=== PATIENT | male | born 1985 | race Caucasian/White ===

== ENCOUNTER 2019-11-07 08:37 | Outpatient (CLI) | payer BC, SELFPAY ==
--- NOTE | 2019-11-07 | EST_ITS ---
Patient Info Name: Chino Anderson Age: 34 years : 1985 Gender: Male Ht: 70 in Wt: 230 lbs BSA: 2.30 m2 Exam Date: 11/07/2019 9:01 AM Exam Location: [facility] Stress Patient Status: Outpatient Admit Date: 11/07/2019 Staff Ordering Physician: Carly, Yanelis Field MD Attending Provider: Carly, Yanelis Field MD Exercise Technologist: Tata Brar RDCS Exercise Physician: Eyad Hutson DO Exam Type: CA stress test treadmill Study Info Indications ICD E10.9 - TYPE 1 DIABETES MELLITUS WITHOUT COMPLICATIONS A treadmill exercise stress test was performed. Summary 1. 1. Negative Rylan exercise stress test for ischemic ST changes by ECG criteria. He achieved 189 bpm and 12 minutes and 46 seconds. 2. 2. Good functional capacity, achieving 13.3 METs of workload. 3. 3. Appropriate HR response to exercise. 4. 4. Appropriate HR recovery at 1 minute post exercise. 5. 5. No imaging with stress testing. 6. 6. Patient informed of the above results. Protocol: Rylan Stress ECG Details Stage: REST Duration (min): 10 min : 41 sec Speed (mph): 0.0 Grade (%): 0 HR (bpm): 81 SBP (mmHg): 132 DBP (mmHg): 83 METS: --- Stage: REST Duration (min): 13 min : 3 sec Speed (mph): 0.0 Grade (%): 0 HR (bpm): 76 SBP (mmHg): 132 DBP (mmHg): 83 METS: --- Stage: STAGE 1 Duration (min): 1 min : 0 sec Speed (mph): 1.7 Grade (%): 10 HR (bpm): 99 SBP (mmHg): 132 DBP (mmHg): 83 METS: --- Stage: STAGE 1 Duration (min): 2 min : 0 sec Speed (mph): 1.7 Grade (%): 10 HR (bpm): 106 SBP (mmHg): 132 DBP (mmHg): 83 METS: --- Stage: STAGE 1 Duration (min): 3 min : 0 sec Speed (mph): 1.7 Grade (%): 10 HR (bpm): 114 SBP (mmHg): 150 DBP (mmHg): 70 METS: --- Stage: STAGE 2 Duration (min): 1 min : 0 sec Speed (mph): 2.5 Grade (%): 12 HR (bpm): 119 SBP (mmHg): 150 DBP (mmHg): 70 METS: --- Stage: STAGE 2 Duration (min): 2 min : 0 sec Speed (mph): 2.5 Grade (%): 12 HR (bpm): 126 SBP (mmHg): 172 DBP (mmHg): 67 METS: --- Stage: STAGE 2 Duration (min): 3 min : 0 sec Speed (mph): 2.5 Grade (%): 12 HR (bpm): 130 SBP (mmHg): 172 DBP (mmHg): 67 METS: --- Stage: STAGE 3 Duration (min): 1 min : 0 sec Speed (mph): 3.4 Grade (%): 14 HR (bpm): 139 SBP (mmHg): 179 DBP (mmHg): 66 METS: --- Stage: STAGE 3 Duration (min): 2 min : 0 sec Speed (mph): 3.4 Grade (%): 14 HR (bpm): 145 SBP (mmHg): 179 DBP (mmHg): 66 METS: --- Stage: STAGE 3 Duration (min): 3 min : 0 sec Speed (mph): 3.4 Grade (%): 14 HR (bpm): 149 SBP (mmHg): 170 DBP (mmHg): 72 METS: --- Stage: STAGE 4 Duration (min): 1 min : 0 sec Speed (mph): 4.2 Grade (%): 16 HR (bpm): 164 SBP (mmHg): 170 DBP (mmHg): 72 METS: ---
== END 2019-11-07 08:38 | disposition home or self-care (01) ==
PROVIDERS: PCP Family Medicine; Visit Provider Family Medicine
DX: E10.9 Type 1 diabetes mellitus without complications (principal)
CPT/HCPCS: 93017

== ENCOUNTER 2019-12-16 14:51 | Inpatient (IN) | payer BC, SELFPAY ==
[2019-12-16] VITALS (12 sets, daily range): BP systolic 128–159; BP diastolic 71–93; PULSE 97–120; RESP 15–23; TEMP 36.1; O2SAT 97–100
--- NOTE | ~2019-12-16 | CT_ITS ---
EXAMINATION: CT abdomen pelvis w con DATE: 12/16/2019 17:32 INDICATION: Abdominal pain TECHNIQUE: Computed tomography (CT) of the abdomen and pelvis was performed with 100 cc Omnipaque 350 intravenous contrast. Automated exposure control and iterative reconstruction technique were employe d. Exam dose: 1056.66 mGy-cm total exam DLP. COMPARISON: None. FINDINGS: The lung bases are clear of infiltrate or consolidation. Normal heart size. No pericardial or pleural effusion. Diffuse hepatic steatosis. No hepatic, splenic, pancreatic, and adrenal or renal space-occupying mass lesion is evident. Normal caliber of the abdominal aorta. No intraperitoneal or retroperitoneal or p elvic mass lesion or adenopathy or ascites. The urinary bladder, prostate gland and seminal vesicles appear normal. Normal appendix. There are scattered occasional diverticula of the colon; no CT evidence of diverticulitis. No bowel o bstruction, bowel wall thickening, pneumatosis or intraperitoneal free air. Included skeletal structures are unremarkable. IMPRESSION: Minimal diverticulosis of the colon Diffuse hepatic steatosis Reviewed, dictated and finalized at [facility] Reviewed, dictated and finalized at [facility]. EXAMINER
--- NOTE | ~2019-12-16 | XR_ITS ---
EXAMINATION: XR chest 1V portable DATE: 12/16/2019 16:18 INDICATION: Shortness of breath, cough and fever TECHNIQUE: frontal view of the chest was obtained along with a repeat image with nipple markers. COMPARISON: None FINDINGS: 9 mm nodular opacity projecting over the anterior left fourth rib at the lateral left midlung zone wh ich does not colocalize with the nipples. No other airspace opacities, pulmonary edema, pleural effus ion or pneumothorax. The cardiomediastinal silhouette is normal. Are a couple small sclerotic likely bone islands project over the right glenoid and humeral head. Mild thoracic dextrocurvature. IMPRESSION: 1. Small nodular opacity projecting over the lateral left midlung zone which given patient age is mos t likely infectious/inflammatory in etiology. Could consider follow-up low-dose noncontrast chest CT for further evaluation. Reviewed, dictated and finalized at [facility] PRODUCTION IMPRESSION: 1. Small nodular opacity projecting over the lateral left midlung zone which gi rema patient age is most likely infectious/inflammatory in etiology. Could consi suha follow-up low-dose noncontrast chest CT for further evaluation.
--- NOTE | 2019-12-16 15:18 | ECG_ITS ---
Measurements Intervals [place] Rate: 104 P: 75 ME: 147 QRS: 90 QRSD: 93 T: 46 QT: 331 QTc: 436 Interpretive Statements SINUS TACHYCARDIA PEAKED T WAVES- CONSIDER HYPERKALEMIA OR ISCHEMIA ABNORMAL ECG Electronically Signed On 12-16-2019 17:34:09 NIGHTMAN by Eyad Hutson D.O.
[2019-12-16 15:35] LABS: Basophils Absolute Auto 0.1 K/mm3 (0.0-0.1); Basophils Percent Auto 0.6 % (0.2-1.2); Eosinophils Percent Auto 0.2 % (0-4.4); Hematocrit 50.4 % (42.0-52.0); Hemoglobin 17.2 g/dL (14.0-18.0); Immature Granulocyte Absolute 0.05 K/mm3 (0.00-0.031); Immature Granulocyte Percent A 0.4 % (0-0.5); Lymphocytes Percent Auto 10.6 % (18.3-44.2); Mean Corpuscular HGB Conc 34.1 g/dl (32-36); Mean Corpuscular Volume 96.7 fl (80-100); Mean Platelet Volume 9.1 fl (7.4-10.4); Monocytes Percent Auto 7.3 % (2.6-8.5); Neutrophils Absolute Auto 11.4 K/mm3 (1.3-6.7); Neutrophils Percent Auto 80.9 % (45.5-73.1); Platelet Count Result 378 k/mm3 (150-375); Red Blood Count 5.21 M/mm3 (4.6-6.20); Red Cell Distribution Width 11.3 % (11.5-14.5); White Blood Count 14.1 K/mm3 (4.5-10.0)
--- NOTE | 2019-12-16 16:28 | ED.GENADULT ---
HPI - General Adult General Chief complaint: Shortness of Breath/Dyspnea Stated complaint: vomiting, headache, body aches, fever Time Seen by Provider: 12/16/19 16:02 Source: RN notes reviewed History of Present Illness HPI narrative: Patient presents emergency department from home for multiple complaints. Patient states that she developed shortness of breath with a cough starting yesterday cough is productive of yellow sputum states is associated with feeling of chest heaviness. He also notes developing nausea and vomiting today states that is associated with abdominal pain throughout the abdomen described as cramping in nature. States that he is a type I diabetic. States he has been having a fever at home has been measuring up to 101 ?F. He denies having any diarrhea or any other symptoms at this time Related Data Allergies Allergy/AdvReac Type Severity Reaction Status Date / Time No Known Allergies Allergy Verified 12/16/19 17:05 Review of Systems Review of Systems: Narrative: Gen.: Denies fevers or chills Eyes: Denies eye pain or visual change ENT: Denies congestion Respiratory: Reports cough CV: Reports chest heaviness GI: See HPI denies burning, urgency, frequency or hematuria Musculoskeletal: Denies back pain or muscle pain Neuro: Denies numbness, tingling, weakness or focal weakness Skin: Denies rash Except as documented, all other systems reviewed and negative [facility] Past Medical History Medical History (Updated 12/16/19 @ 18:03 by Brian Zambrano DO) Diabetes mellitus Social History Social History (Updated 12/16/19 @ 16:32 by Brian Zambrano DO) Smoking status: Never smoker Gender identity (if verbalized by the patient): Male Exam Narrative: Exam Narrative: APPEARANCE: No acute distress, nontoxic, resting in bed EYES: EOMI HEENT: Normocephalic, atraumatic, OMM RESPIRATORY: No respiratory distress Clear to auscultation bilaterally with no rhonchi wheezing or rales. CARDIOVASCULAR: Regular rate and rhythm without murmurs rubs or gallops. ABDOMINAL: Soft, nondistended diffusely tender to palpation no rebound or guarding MUSCULOSKELETAl: Moves all extremities. No clubbing, cyanosis or edema. NEURO: Awake and alert. Following commands, speech normal, no focal deficits SKIN:: Warm, dry. No rashes lesions or abrasions PSYCHIATRIC: Normal affect/mood, Course Course Emergency Course: Discussed Dr. Flores presentation work-up agrees with admission the ICU request patient receive a total of 3 L normal saline agrees with insulin drip. Agrees with plans to not treat hyperkalemia at this time as it should improved with improvement of patient's acidotic status Discussed with PARI Slater for Dr. Honeycutt agrees with admission at this time Discussed with patient and family results of workup and diagnosis. Discussed need for admission. Patient and family understand and agree to current treatment plan Vital Signs Vital signs: Vital Signs Temperature 97.0 F L 12/16/19 15:07 Pulse Rate 101 H 12/16/19 15:07 Respiratory Rate 18 12/16/19 15:07 Blood Pressure 143/93 H 12/16/19 15:07 Pulse Oximetry 100 12/16/19 15:07 Temperature 97.0 F L 12/16/19 15:07 Pulse Rate 104 H 12/16/19 17:13 Respiratory Rate 20 12/16/19 17:13 Blood Pressure 150/75 H 12/16/19 17:13 Pulse Oximetry 97 12/16/19 17:13 Medical Decision Making Vital Signs Vital Signs: Vital Signs Temperature 97.0 F L 12/16/19 15:07 Pulse Rate 101 H 12/16/19 15:07 Respiratory Rate 18 12/16/19 15:07 Blood Pressure 143/93 H 12/16/19 15:07 Pulse Oximetry 100 12/16/19 15:07 Temperature 97.0 F L 12/16/19 15:07 Pulse Rate 104 H 12/16/19 17:13 Respiratory Rate 20 12/16/19 17:13 Blood Pressure 150/75 H 12/16/19 17:13 Pulse Oximetry 97 12/16/19 17:13 Lab Data Result diagrams: 12/16/19 15:20 12/16/19 15:20 Labs: Lab Results 12/16/19 12/16/19 12/16/19 Range/U
[2019-12-16 16:45] LABS: Alanine Aminotransferase 51 U/L (4-50); Albumin Level 5.2 g/dL (3.5-5.1); Alkaline Phosphatase 118 U/L (38-126); Anion Gap 32.00001 mmol/L (8-16); Aspartate Amino Transferase 40 U/L (17-59); Blood Urea Nitrogen 17 mg/dL (9-20); Calcium 10.2 mg/dL (8.4-10.2); Carbon Dioxide < 5 mmol/L (22-30); Chloride 95 mmol/L (98-107); Estimated CRCL calculation 107 ml/min; Estimated Glomerular Filt Rate > 60; Glucose 467 mg/dL (75-110); Lipase 84 U/L (23-300); Potassium 6.3 mmol/L (3.4-5.0); Sodium 132 mmol/L (137-145)
[2019-12-16 16:47] LABS: Troponin I < 0.012 ng/mL (0.000-0.034)
[2019-12-16] MEDS: SODIUM CHLORIDE 0.9% IV 1,000 ML 999 ML IV CONT ×3 (17:05→18:32)
[2019-12-16] MEDS: ONDANSETRON INJ 4 MG/2 ML VIAL IV PUSH ×2 (17:18→20:08)
[2019-12-16 17:25] LABS: Add Urine Microscopic? YES; Appearance Urine Clear (Clear); Bilirubin Urine Negative (Negative); Blood Urine 1+ (Negative); Color Urine Straw (Yellow); Glucose Urine UA 3+ mg/dL (Negative); Ketones Urine 2+ mg/dL (Negative); Leukocyte Esterase Ur Negative LEU/UL (Negative); Mucus Urine Rare /lpf; Nitrate Urine Negative (Negative); Protein Urine 2+ mg/dL (Negative); RBC Urine 0-2 /hpf (0-2); Specific Grav Ur 1.023 (1.001-1.035); Urobilinogen Urine Negative mg/dL (<2.0); WBC Urine 0-3 /hpf
[2019-12-16] MEDS: INSULIN HUMAN REGULAR (*BKC) 100 UNITS in SODIUM CHLORIDE 0.9% IV 99 ML 8.8 UNITS IV CONT (17:38)
[2019-12-16 17:47] LABS: Glucose Point of Care > 500 (65-105)
[2019-12-16 17:52] LABS: Alveolar/Arterial O2 Gradient 12.4 mmHg; Base Excess ABG -23.3 mEq/l (+/-2.0); Fractional Inspired Oxygen 21 %; HCO3 ABG 6.4 mEq/l (22.0-26.0); Oxygen Content ABG 21.6 %vol (16.0-22.0); Oxygen Saturation ABG 95.1 % (95.0-100.0); Oxyhemoglobin 94.9 % THb (90.0-100.0); PCO2 ABG 25.3 mmHg (35.0-45.0); Total Hemoglobin 16.1 g/dL (12.0-18.0)
[2019-12-16 17:53] LABS: pH ABG 7.019 (7.350-7.450)
[2019-12-16 17:54] LABS: Device ROOM AIR; Modified Allen's Test Pass; Site Drawn LEFT RADIAL
[2019-12-16 18:37] LABS: Glucose Point of Care 415 (65-105)
--- NOTE | 2019-12-16 18:47 | PC.NURSE ---
called Doc johnson, added on BMO and HGB A1C. BMP was double ordered? 1845
[2019-12-16 18:51] LABS: Magnesium 2.1 mg/dL (1.6-2.3); Phosphorus 5.1 mg/dL (2.5-4.5)
[2019-12-16 19:20] LABS: Hemoglobin A1C 6.3 % (<5.7)
--- NOTE | 2019-12-16 19:23 | PM.IMHP ---
H&P: HPI History of Present Illness Date/Time: 12/16/19 19:23 Chief complaint: vomiting, headache, body aches, fever Narrative: Chino Anderson is a 34 year old male who was diagnosed with diabetes type 1 in his early 30s. The patient is on insulin. He stated that he has been taking his insulin. However he started running a fever approximately 2 days ago. He stated that his dad was around a COVID positive person but his dad tested negative for COVID. Nobody else in the household has any symptoms. The patient has body aches fever and chills. He now has nausea vomiting and abdominal pain. He also has a history of hypertension. Patient's white count is up to 14.1. PH is 7.019 CO2 was 25.3 PO2 107. Potassium 6.3 his anion gap is 32. Carbon dioxide less than 5. Patient was 12 for COVID and placed on isolation. Minimal diverticulosis of the colon diffuse hepatic steatosis. Chest x-ray was read as small nodular opacity projecting over the left lateral mid lung zones. The patient is already aware of this and is being monitored. Patient is being admitted inpatient for DKA. Date of service is 12/16/2019 Review of Systems Review of Systems: All systems reviewed & are unremarkable except as noted in HPI and below Constitutional: Constitutional: Reports as per HPI and Reports no additional constitutional complaints Eyes: Eyes: Reports as per HPI and Reports no additional eye complaints ENT: Reports system reviewed and no additional complaints, except as documented and Reports Normal hearing present Cardiovascular: Cardiovascular: Reports no additional cardiovascular complaints Respiratory: Respiratory: Reports no additional respiratory complaints and Reports no additional respiratory complaints Gastrointestinal: Gastrointestinal: Reports as per HPI and Reports no additional gastrointestinal complaints Musculoskeletal: Musculoskeletal: Reports no additional musculoskeletal complaints Integumentary/Breasts: Skin/Breast: Reports system reviewed and no additional complaints, except as docu and Reports as per HPI Neurologic: Reports system reviewed and no additional complaints, except as documented, Reports as per HPI and Reports Normal hearing present Psychiatric: Psychiatric: Reports no additional psychiatric complaints and Reports as per HPI Endocrine: Endocrine: Reports no additional endocrine complaints Hematologic/Lymphatic: Hematologic/Lymphatic: Reports no additional hematologic/lymphatic complaints Allergic/Immunologic: Allergic/Immunologic: Reports no additional allergic/immunologic complaints [facility] Past Medical History Medical History (Updated 12/16/19 @ 19:27 by Nohemy Cronin NP) Diabetes mellitus Diverticulosis Hepatic steatosis Hypertension Lung nodule PTSD (post-traumatic stress disorder) Surgical History Surgical History H/O right wrist surgery ORIF right wrist History of carpal tunnel release Bilaterally Family History Family History Father Cancer Social History Social History (Updated 12/16/19 @ 19:29 by Nohemy Cronin NP) Social History: The patient is and has 3 children. He has been in the developed PTSD from the . Patient chews tobacco. He occasionally drinks. His is the durable power attorney recruiter for healthcare. The patient is a full code. Smoking status: Never smoker Tobacco type: smokeless tobacco Alcohol intake: current Substance use: never Living arrangements: with family Occupation/Education: occupation Gender identity (if verbalized by the patient): Male Meds Home Medications and Allergies Allergies Allergy/AdvReac Type Severity Reaction Status Date / Time No Known Allergies Allergy Verified 12/16/19 17:05 Vital Signs Vital Signs - 24 hr 12/16/19 15:07 12/16/19 15:52 12/16/19 17:13 Temperature 36.1 C
[2019-12-16] MEDS: SODIUM CHLORIDE 0.9% IV 1,000 ML 150 ML IV CONT (20:08)
[2019-12-16 20:19] LABS: Glucose Point of Care 310 (65-105)
[2019-12-16 20:30] LABS: Lactic Acid Reflex 1.9 mmol/L (0.7-2.1)
[2019-12-16 20:32] LABS: Anion Gap 23 mmol/L (8-16); Blood Urea Nitrogen 16 mg/dL (9-20); Calcium 8.4 mg/dL (8.4-10.2); Carbon Dioxide 7 mmol/L (22-30); Chloride 106 mmol/L (98-107); Estimated CRCL calculation 118 ml/min; Estimated Glomerular Filt Rate > 60; Glucose 264 mg/dL (75-110); Potassium 5.3 mmol/L (3.4-5.0); Sodium 136 mmol/L (137-145)
[2019-12-16 21:01] LABS: Glucose Point of Care 226 (65-105)
[2019-12-16] MEDS: SODIUM BICARBONATE 8.4% 150 MEQ in WATER, STERILE FOR INJECTION 950 ML 100 MEQ IV CONT (21:27)
[2019-12-16] MEDS: ENOXAPARIN 40 MG/0.4 ML SYRINGE SUB-Q (21:28)
[2019-12-16 21:31] LABS: Troponin I < 0.012 ng/mL (0.000-0.034)
[2019-12-16 22:55] LABS: Glucose Point of Care 177 (65-105)
[2019-12-17] VITALS (10 sets, daily range): BP systolic 111–147; BP diastolic 54–78; PULSE 76–101; RESP 13–20; TEMP 36.6–36.9; O2SAT 97–100; BMI 30.3
[2019-12-17] MEDS: ONDANSETRON INJ 4 MG/2 ML VIAL IV PUSH (00:24)
[2019-12-17 00:40] LABS: Anion Gap 17 mmol/L (8-16); Blood Urea Nitrogen 14 mg/dL (9-20); Calcium 8.9 mg/dL (8.4-10.2); Carbon Dioxide 14 mmol/L (22-30); Chloride 105 mmol/L (98-107); Estimated CRCL calculation 116 ml/min; Estimated Glomerular Filt Rate > 60; Glucose 130 mg/dL (75-110); Sodium 136 mmol/L (137-145)
[2019-12-17 00:46] LABS: Influenza Control Positive
[2019-12-17 00:50] LABS: Troponin I < 0.012 ng/mL (0.000-0.034)
[2019-12-17 01:05] LABS: Glucose Point of Care 109 (65-105)
[2019-12-17 01:05] LABS: Glucose Point of Care 136 (65-105)
--- NOTE | 2019-12-17 01:25 | PC.NURSE ---
This patient, Chino Anderson, was admitted to Intensive Care Unit-8 at 0000 on 12/17/2019. Patient/family oriented to hospital policies and general routines including ID bracelet, bed and alarms, visiting hours, pain management, procedures, bathroom and other care routines, personal items, smoking policy, room service/diet, and visiting hours. Information on how to activate the Rapid Response Team has been discussed. Patient/Family are encouraged to report perceived risks to care and to ask questions if they do not understand what they are told or what they should do.
[2019-12-17] MEDS: MORPHINE SULFATE (*CRX) 2 MG/ML INJ IV PUSH (01:57)
[2019-12-17] MEDS: KCL 20 MEQ/D5/0.45% SOD CHL 1,000 ML 150 ML IV CONT ×2 (01:58→09:21)
[2019-12-17 02:11] LABS: Alveolar/Arterial O2 Gradient 8.1 mmHg; Base Excess ABG -12.4 mEq/l (+/-2.0); Fractional Inspired Oxygen 21 %; HCO3 ABG 13.4 mEq/l (22.0-26.0); Oxygen Content ABG 20.6 %vol (16.0-22.0); Oxyhemoglobin 96.1 % THb (90.0-100.0); PCO2 ABG 31.3 mmHg (35.0-45.0); PO2 ABG 104.2 mmHg (80.0-100.0); PO2 FiO2 Ratio Arterial Blood 4.96 %; Total Hemoglobin 15.2 g/dL (12.0-18.0)
[2019-12-17 02:13] LABS: Device ROOM AIR; Modified Allen's Test Pass; Site Drawn RIGHT RADIAL
[2019-12-17 02:36] LABS: Glucose Point of Care 99 (65-105)
[2019-12-17 03:29] LABS: Glucose Point of Care 133 (65-105)
[2019-12-17 05:01] LABS: Glucose Point of Care 138 (65-105)
[2019-12-17 05:01] LABS: Glucose Point of Care 150 (65-105)
[2019-12-17 05:28] LABS: Anion Gap 13 mmol/L (8-16); Blood Urea Nitrogen 13 mg/dL (9-20); Calcium 8.4 mg/dL (8.4-10.2); Carbon Dioxide 18 mmol/L (22-30); Chloride 105 mmol/L (98-107); Estimated CRCL calculation 146 ml/min; Estimated Glomerular Filt Rate > 60; Glucose 144 mg/dL (75-110); Potassium 4.4 mmol/L (3.4-5.0); Sodium 136 mmol/L (137-145)
[2019-12-17 06:39] LABS: Glucose Point of Care 141 (65-105)
[2019-12-17 07:27] LABS: Glucose Point of Care 144 (65-105)
[2019-12-17 08:54] LABS: Potassium 4.3 mmol/L (3.4-5.0)
[2019-12-17 08:57] LABS: Anion Gap 7 mmol/L (8-16); Blood Urea Nitrogen 13 mg/dL (9-20); Calcium 8.5 mg/dL (8.4-10.2); Carbon Dioxide 24 mmol/L (22-30); Chloride 104 mmol/L (98-107); Estimated CRCL calculation 129 ml/min; Estimated Glomerular Filt Rate > 60; Glucose 152 mg/dL (75-110); Sodium 135 mmol/L (137-145)
[2019-12-17 08:58] LABS: Glucose Point of Care 166 (65-105)
[2019-12-17 09:23] LABS: Glucose Point of Care 124 (65-105)
[2019-12-17] MEDS: INSULIN GLARGINE (*BKC) 100 UNITS/ML 36 UNITS SUB-Q (09:44)
[2019-12-17] MEDS: ACETAMINOPHEN 500 MG TABLET 1000 MG PO ×2 (09:44→16:43)
--- NOTE | 2019-12-17 10:51 | PM.IMPN ---
Progress Note: A&P Assessment and Plan (1) DKA (diabetic ketoacidoses): Code(s): E11.10 - Type 2 diabetes mellitus with ketoacidosis without coma Status: Acute Assessment and Plan: Patient with abd pain, n/v and myalgias. He was found to have AG 32, glucose >500, BHO 10.7 and urine ketones consistent with DKA. Patient started on DKA protocol. AG closed. Symptoms mostly have resolved. Eating and toelrating it. Weaned off the insulin drip and changed back to his Lantus. DM educatior contacted (2) Diabetes mellitus: Code(s): E11.9 - Type 2 diabetes mellitus without complications Status: Acute Assessment and Plan: A1c 6.3. The patient's blood glucose was reviewed on 12/16 Glucose much better controlled. Continue AccuCheks covering with sliding scale. Hypoglycemia protocol available as needed. Lantus resumed (3) Acute hyperkalemia: Code(s): E87.5 - Hyperkalemia Status: Acute Assessment and Plan: Potassium at 6.3 with EKG changes noted. Treated appropriately and improved with improvement in the acidosis. Contnue to monitor. (4) Epigastric pain: Code(s): R10.13 - Epigastric pain Status: Acute Assessment and Plan: CT of the abdomen pelvis showing no acute findings explain epigastric pain. Consider gastritis or peptic ulcer disease. Also be musculoskeletal pain vomiting. The chest heaviness and SOB most likely related to the severe acidosis on admission. Troponins are negative. EKG showing peaked T waves from the hyperkalemia but no acute ischemic findings. Stress test 11/07/19 okay. These symptoms has resolved. Add PPI. Repeat Lipase. (5) Suspected COVID-19 virus infection: Code(s): Z20.828 - Contact with and (suspected) exposure to other viral communicable diseases Status: Acute Assessment and Plan: Subjective fevers but CXR clear. He has marley having GI symptoms. Influenza negative. Patient will be placed on isolation. Possible COVID exposure from coworker that is COVID positive. COVID test pending. (6) Hypertension: Code(s): I10 - Essential (primary) hypertension Status: Chronic Assessment and Plan: Patient's blood pressure was reviewed on 12/16 Blood pressure remains well controlled. Will continue to hold Lisinopril for now. (7) PTSD (post-traumatic stress disorder): Code(s): F43.10 - Post-traumatic stress disorder, unspecified Status: Chronic Assessment and Plan: Mood stable. Resume home medications. (8) Lung nodule: Code(s): R91.1 - Solitary pulmonary nodule Status: Chronic Assessment and Plan: CXR showing a small nodular opacity projecting over the lateral left midlung zone. The patient is aware of this already and his doctors have been monitoring him. (9) DVT prophylaxis: Code(s): Z29.9 - Encounter for prophylactic measures, unspecified Status: Acute Assessment and Plan: Lovenox Subjective Date/time seen: 12/17/19 10:51 Interval history: Date of service 12/16 34yo male with DM Type I here for DKA. Feels much better. Eating and tolerating it without nausea or vomiting. Still having the upper abd pain that is positional and palpable. Was SOB with chest heaviness on admission but this has resolved. Exam Narrative: Exam Narrative: AF 98.4 125/71 98 16 100% ra Gen - NARD Chest - CTA bilaterally, nml RR CV - RRR S1/S2; Tele showing no signifincat dysrhythmias Abd - Soft, minimal tenderness in the epigastric region Ext - No pedal edema, 2+ DP bilaterally Neuro - Alert and oriented. Nonfocal exam. Psych - Nml mood and affect Skin - Warm and dry; faint pink rash right mid abdomen. Objective Data Vital Signs Vital Signs: Vital Signs - 24 hr 12/16/19 15:07 12/16/19 15:52 12/16/19 17:13 Temperature 97.0 F L Pulse Rate 101 H 102 H 104 H Respiratory Rate 18 20 Blood Pressu
--- NOTE | 2019-12-17 11:46 | PC.NURSE ---
This patient, Chino Anderson, was received from ICU on 12/17/19 at 1146. Patient/family oriented to unit policies and routines
[2019-12-17] MEDS: INSULIN ASPART (*BKC) 100 UNITS/ML SUB-Q ×2 (11:57→18:04)
--- NOTE | 2019-12-17 12:01 | WPDCNINT ---
Assessment and Plan Assessment and plan (1) DKA (diabetic ketoacidoses): Code(s): E11.10 - Type 2 diabetes mellitus with ketoacidosis without coma Status: Acute Assessment and Plan: patient with diabetic ketoacidosis on admission, states he has been taking his medications. Been feeling ill with body aches, nausea, vomiting, shortness of breath with nonproductive cough and fevers. - Anion gap is closed, will transition patient to long-acting insulin and sliding scale insulin. He takes Lantus 36 units q.day which was given to him this morning - continue high-dose sliding scale - hemoglobin A1c was 6.3 this admission (2) Epigastric pain: Code(s): R10.13 - Epigastric pain Status: Acute Assessment and Plan: likely secondary nausea and vomiting. CT scan of the abdomen and pelvis showing no acute findings explaining his epigastric pain. Could be secondary to gastritis or peptic ulcer disease. - Patient also had negative troponins. - PPI was added - lipase has been repeated given history of alcohol use (3) Acute hyperkalemia: Code(s): E87.5 - Hyperkalemia Status: Acute Assessment and Plan: acute hyperkalemia likely related to acidosis - has resolved, will continue to monitor (4) Nausea & vomiting: Code(s): R11.2 - Nausea with vomiting, unspecified Status: Acute Assessment and Plan: likely due to DKA, has resolved (5) Suspected COVID-19 virus infection: Code(s): Z20.828 - Contact with and (suspected) exposure to other viral communicable diseases Status: Acute Assessment and Plan: patient with fevers, shortness of breath and cough which was nonproductive - patient was also having GI symptoms. - influenza negative - possible COVID-19 exposure from a co-worker who was positive COVID-19 - continue airborne, droplet, contact isolation/precautions - SARS-CoV-2 PCR obtained and pending (6) Hypertension: Code(s): I10 - Essential (primary) hypertension Status: Chronic Assessment and Plan: pressures have been stable, will hold lisinopril (7) Lung nodule: Code(s): R91.1 - Solitary pulmonary nodule Status: Chronic Assessment and Plan: patient is aware of the nodule on his lungs, and has been following with his doctors who have been monitoring (8) DVT prophylaxis: Code(s): Z29.9 - Encounter for prophylactic measures, unspecified Status: Acute Assessment and Plan: Lovenox Additional Plan discussed with patient updated with his condition and plan of care. He is aware that he will be transitioned to long-acting insulin and sliding scale insulin. He will be able to eat once insulin infusion is turned off code status: Full code critical care time spent: 43 minutes Due to a high probability of clinically significant, life threatening deterioration, the patient required my highest level of preparedness to intervene emergently and I personally spent this critical care time directly and personally managing the patient. This critical care time included obtaining a history; examining the patient; pulse oximetry; ordering and review of studies; arranging urgent treatment with development of a management plan; evaluation of patient's response to treatment; frequent reassessment; and discussions with other providers. It was exclusive of separately billable procedures and treating other patients and teaching time. Please see Assessment and Plan section and the rest of the note for further information on patient assessment and treatment [facility] Consult Note Consult date: 12/17/19 Time Seen: 07:06 Reason for consult: diabetic ketoacidosis, suspect COVID-19 HPI: Chino Anderson is a 34 year old male past medical history of diabetes type 1, hepatic steatosis, PTSD, essential hypertension, Lung nodule, diverticulosis presented to the ED on 12/16/2019 complains of nausea, vomiting, abdomina
[2019-12-17 12:02] LABS: Glucose Point of Care 308 (65-105)
[2019-12-17 14:13] LABS: SARS-CoV-2 RNA PCR Negative
[2019-12-17] MEDS: PANTOPRAZOLE SODIUM IV 40 MG VIAL IV PUSH (16:17)
[2019-12-17] MEDS: INSULIN ASPART (*BKC) 100 UNITS/ML 9 UNITS SUB-Q (18:04)
[2019-12-17 18:33] LABS: Glucose Point of Care 290 (65-105)
[2019-12-17] MEDS: ENOXAPARIN 40 MG/0.4 ML SYRINGE SUB-Q (20:27)
[2019-12-17] MEDS: INSULIN ASPART (*BKC) 100 UNITS/ML 6 UNITS SUB-Q (21:24)
[2019-12-18] MEDS: INSULIN ASPART (*BKC) 100 UNITS/ML SUB-Q ×2 (02:59→09:24)
[2019-12-18 05:30] LABS: Glucose Point of Care 235 (65-105)
[2019-12-18 05:30] LABS: Glucose Point of Care 379 (65-105)
[2019-12-18 05:30] LABS: Glucose Point of Care 225 (65-105)
[2019-12-18 06:00] VITALS: BP 137/86; PULSE 67; RESP 16; TEMP 36.3; O2SAT 100
[2019-12-18 06:19] LABS: Hematocrit 35.9 % (42.0-52.0); Hemoglobin 12.8 g/dL (14.0-18.0); Mean Corpuscular HGB Conc 35.7 g/dl (32-36); Mean Corpuscular Hemoglobin 32.2 pg (26-34); Mean Corpuscular Volume 90.4 fl (80-100); Mean Platelet Volume 8.7 fl (7.4-10.4); Platelet Count Result 264 k/mm3 (150-375); Red Blood Count 3.97 M/mm3 (4.6-6.20); Red Cell Distribution Width 11.1 % (11.5-14.5); White Blood Count 5.8 K/mm3 (4.5-10.0)
[2019-12-18 06:36] LABS: Alanine Aminotransferase 35 U/L (4-50); Albumin Level 3.9 g/dL (3.5-5.1); Alkaline Phosphatase 62 U/L (38-126); Anion Gap 5 mmol/L (8-16); Aspartate Amino Transferase 35 U/L (17-59); Bilirubin,Total 0.6 mg/dL (0.2-1.3); Blood Urea Nitrogen 7 mg/dL (9-20); Calcium 8.6 mg/dL (8.4-10.2); Carbon Dioxide 29 mmol/L (22-30); Chloride 101 mmol/L (98-107); Estimated CRCL calculation 146 ml/min; Estimated Glomerular Filt Rate > 60; Glucose 177 mg/dL (75-110); Lipase 678 U/L (23-300); Sodium 135 mmol/L (137-145)
[2019-12-18 07:17] LABS: Hepatitis B Surface Antigen Negative (Negative)
[2019-12-18 07:23] LABS: HAV RESULT Negative (Negative); Hepatitis B Core IgM Result Negative (Negative)
[2019-12-18 07:35] LABS: Hepatitis C Virus Antibody Negative (Negative)
[2019-12-18 07:57] LABS: Glucose Point of Care 421 (65-105)
[2019-12-18] MEDS: PANTOPRAZOLE 40 MG TABLET PO (08:19)
[2019-12-18 09:21] LABS: Glucose Point of Care 262 (65-105)
[2019-12-18] MEDS: INSULIN ASPART (*BKC) 100 UNITS/ML 9 UNITS SUB-Q (09:24)
--- NOTE | 2019-12-18 09:58 | PM.DS ---
DS: Admitting Diagnosis Admitting Diagnosis Admitting Diagnosis: DKA DS: Discharge Diagnosis Discharge Diagnosis (1) DKA (diabetic ketoacidoses): Code(s): E11.10 - Type 2 diabetes mellitus with ketoacidosis without coma Status: Acute Assessment and Plan: Patient with abd pain, n/v and myalgias. He was found to have Anion gap 32, glucose >500, BHO 10.7 and urine ketones consistent with DKA. Patient admitted to ICU and started on DKA protocol. AG closed. Symptoms have resolved. Eating and tolerating it. Weaned off the insulin drip and changed back to his Lantus. Glucose elevated at times since moving out of the ICU but patient states the carb content in the food is too low. Etiology of DKA unknown but suspected related to viral illness. (2) Diabetes mellitus: Code(s): E11.9 - Type 2 diabetes mellitus without complications Status: Acute Assessment and Plan: A1c 6.3. The patient's blood glucose was monitored closely. Glucose higher than he runs at home. He feels that the carb content in food is mislabeled. We continued AccuCheks covering with sliding scale. Hypoglycemia protocol available as needed. Recommend that he resume his home diet and insulin regiment with FSBS QAC/HS. If he forgets, recommend checking glucose 2hrs after his meal (3) Acute hyperkalemia: Code(s): E87.5 - Hyperkalemia Status: Acute Assessment and Plan: Potassium at 6.3 with EKG changes noted. Treated appropriately and improved with improvement in the acidosis. (4) Epigastric pain: Code(s): R10.13 - Epigastric pain Status: Acute Assessment and Plan: CT of the abdomen pelvis showing no acute findings to explain the epigastric pain. Consider gastritis or peptic ulcer disease. Also could be musculoskeletal pain from vomiting. The chest heaviness and SOB most likely related to the severe acidosis on admission. Troponins are negative. EKG showing peaked T waves from the hyperkalemia but no acute ischemic findings. Stress test 11/07/19 okay. These symptoms has resolved. We added PPI. Lipase normal on admission but up to 678 on repeat. No evidence of pancreatitis by CT scan. Food does not make the epigastric pain worse. The epigastric pain better today. Could have elevated lipase related to viral illness or from the severe acidosis. (5) Suspected COVID-19 virus infection: Code(s): Z20.828 - Contact with and (suspected) exposure to other viral communicable diseases Status: Acute Assessment and Plan: Subjective fevers at home but not here. CXR showing a small nodular opacity projecting over the lateral left midlung zone but otherwise clear. He has been having GI symptoms. Influenza negative. COVID negative. Still feels SOB but overall symptoms are improving. (6) Hypertension: Code(s): I10 - Essential (primary) hypertension Status: Chronic Assessment and Plan: Patient's blood pressure was monitored closely. Blood pressure remained well controlled. (7) PTSD (post-traumatic stress disorder): Code(s): F43.10 - Post-traumatic stress disorder, unspecified Status: Chronic Assessment and Plan: Mood stable. We resumed his home medications. (8) Lung nodule: Code(s): R91.1 - Solitary pulmonary nodule Status: Chronic Assessment and Plan: CXR showing a small nodular opacity projecting over the lateral left midlung zone. The patient is aware of this already and his doctors have been monitoring him. DS: Summary Hospital Course Reason for hospitalization: 34yo male with DM type I here for abd pain, n/v and myalgias and found to have DKA. Hospital Course: As above Status at Discharge Cognitive/behavioral status at discharge: PATIENT STABLE AT DISCHARGE Time Spent with Patient Time attestation: Total time spent providing and/or coordinating discharge services:32 minutes
--- NOTE | 2019-12-22 14:29 | PC.NURSE ---
Blood cx are negative. edi
== END 2019-12-18 11:00 | disposition home or self-care (01) | DRG 639 ==
LOC: ANHED 18:03 → ANHICU 12-17 02:31 → ANH3MEDSUR 12-18 10:24 → ANHICU 12-22 14:30
PROVIDERS: Emergency Medicine; Family Medicine; Internal Medicine; Student in an Organized Health Care Education/Training Program; Admitting Provider Internal Medicine; Emergency Provider Emergency Medicine; PCP Family Medicine; Visit Provider Nurse Practitioner
DX: E10.10 Type 1 diabetes mellitus with ketoacidosis without coma (principal); Z20.828 Contact with and (suspected) exposure to other viral communicable diseases; E87.5 Hyperkalemia; R10.13 Epigastric pain; R91.1 Solitary pulmonary nodule; I10 Essential (primary) hypertension; K57.90 Diverticulosis of intestine, part unspecified, without perforation or abscess without bleeding; K76.0 Fatty (change of) liver, not elsewhere classified; F17.220 Nicotine dependence, chewing tobacco, uncomplicated; F43.10 Post-traumatic stress disorder, unspecified; Y37.90XS Military operations, unspecified, sequela; Z23 Encounter for immunization; Z79.4 Long term (current) use of insulin
CPT/HCPCS: 36415; 36600; 71045; 74177; 80048; 80053; 80074; 81001; 82010; 82805; 82948; 83036; 83605; 83690; 83735; 84100; 84484; 85025; 85027; 87040; 87635; 87804; 90471; 90653; 93005; 96361; 96365; 96375; 99291; A9270; C9113; C9803; G0008; G0378; J0131; J1650; J1815; J2270; J2405; J3480; J7030; Q9967; U0003

== ENCOUNTER 2020-10-30 16:38 | Emergency (ER) | payer BC, SELFPAY ==
[2020-10-30 16:47] VITALS: BP 136/85; PULSE 116; RESP 18; TEMP 36.6; O2SAT 100
[2020-10-30 16:49] VITALS: BP 136/85; PULSE 116; RESP 18; TEMP 36.6; O2SAT 100
--- NOTE | 2020-10-30 17:05 | ED.SKABFB ---
HPI - Skin/Abscess/Foreign Bdy General Chief complaint: Extremity Injury, Lower Stated complaint: Rt leg swelling,Fever,Headaches,Chills Source: patient and RN notes reviewed Limitations: no limitations History of Present Illness HPI narrative: The patient, who is on several medications for diabetes, presents with skin eruption. 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 He now has 1/2-week history of pink, inflamed eruption below his right hip/trochanter/beltline. Symptoms are mild, associated with chills; no fever, abscess/induration, streaking, fluctuance. Symptoms are mild persistent despite antihistamines; he had prior prior leg lymph node dissection on the same side years ago. Related Data Home Medications Medication Instructions Recorded Confirmed Lantus Solostar U-100 Insulin 36 unit SUBCUT HS 12/17/19 10/30/20 azelastine-fluticasone 1 spray INTRANASAL BID 12/17/19 10/30/20 dextroamphetamine-amphetamine 30 mg PO QAM 12/17/19 10/30/20 [Adderall XR] insulin aspart U-100 [Novolog See Protocol SUBCUT TIDWMEAL 12/17/19 10/30/20 Flexpen U-100 Insulin] lisinopril 40 mg PO HS 12/17/19 10/30/20 insulin syringe-needle U-100 [BD 10/30/20 10/30/20 Insulin Syringe Ultra-Fine] pravastatin 20 mg PO DAILY 10/30/20 10/30/20 Allergies Allergy/AdvReac Type Severity Reaction Status Date / Time No Known Allergies Allergy Verified 10/30/20 16:49 Review of Systems Review of Systems: General/Constitutional: No weight loss,fever Eyes: N0: Redness,discharge Ears/Nose/Throat: No: Epistaxis,ear discharge Respiratory: Denies: Hemoptysis Gastrointestinal: No Vomiting, Bleeding-rectal Skin: No Lumps, eruption Neurologic: No Focal Weakness,Sz Hematologic: Denies: Petechiae/Purpura Psychiatric: No: Suicida ideationl All Other Systems: Reviewed and Negative [facility] Past Medical History Medical History (Updated 10/30/20 @ 17:09 by Wayne Romo MD) Diabetes mellitus Diverticulosis Hepatic steatosis Hypertension Lung nodule PTSD (post-traumatic stress disorder) Surgical History Surgical History (Updated 12/16/19 @ 19:33 by Nohemy Cronin NP) H/O right wrist surgery ORIF right wrist History of carpal tunnel release Bilaterally Family History Family History (Updated 12/17/19 @ 00:22 by Angela Casarez RN) Father Cancer Sibling Diabetes 1.5, managed as type 1 Sibling Diabetes 1.5, managed as type 1 Social History Social History (Updated 12/16/19 @ 19:29 by Nohemy Cronin NP) Social History: The patient is and has 3 children. He has been in the developed PTSD from the . Patient chews tobacco. He occasionally drinks. His is the durable power business attorney for healthcare. The patient is a full code. Smoking status: Light tobacco smoker Tobacco type: cigarettes Alcohol intake: unknown Substance use: unknown Gender identity (if verbalized by the patient): Male Spiritual care concerns: No Comments At time of signature, agree with nursing past medical, surgical, social and family history. There is no relevant family history pertinent to the presenting complaint Exam Narrative: General Appearance: Well nourished, Normocephalic Skin: Half-dollar sized small, isolated macular papular skin eruption of ant, right trochanter Nose: Normal nose, Nare clear Mouth/Throat: Normal appearing, Supple Respiratory: Airway patent, No respiratory distress Musculoskeletal: Moves all extremities, Non tender Neurological: A&O x3, Normal affect Course Vital Signs Vital signs: Vital Signs Temperature 97.8 F 10/30/20 16:47 Pulse Rate 116 H 10/30/20 16:47 Respiratory Rate 18 10/30/20 16:47 Blood Pressure 136/85 10/30/20 16:47 Pulse Oximetry 100 10/30/20 16:47 Temperature 97.8 F 10/30/20 16:49 Pulse Rate 116 H 10/30/20 16:49 Respiratory Rate 18 10/30/20 16:49 Blood Pressure 136/85 10/30/20 16
== END 2020-10-30 17:15 | disposition home or self-care (01) ==
PROVIDERS: Emergency Provider Emergency Medicine; PCP Family Medicine
DX: L03.115 Cellulitis of right lower limb (principal); E11.9 Type 2 diabetes mellitus without complications; I10 Essential (primary) hypertension; F17.200 Nicotine dependence, unspecified, uncomplicated; Z79.4 Long term (current) use of insulin
CPT/HCPCS: 99213; G0463

== ENCOUNTER 2021-05-20 10:49 | Emergency (ER) | payer BC, SELFPAY ==
[2021-05-20 10:57] VITALS: BP 131/87; PULSE 93; RESP 16; TEMP 36.3; O2SAT 100
--- NOTE | 2021-05-20 10:58 | ED.URI ---
HPI - URI/Sore Throat General Chief Complaint: Upper Respiratory Infection Stated Complaint: SOB/FEVER/CHILLS/CONGESTION/COUGH/RUNNY NOSE Time Seen by Provider: 05/20/21 10:58 Source: patient Mode of arrival: ambulatory Limitations: no limitations History of Present Illness HPI Narrative: 35-year-old male presents with complaint of headaches, fatigue, fever, nasal congestion, cough, body aches for 2 days. Reports that his temperature was 101.6 Fahrenheit. States that he is taking ibuprofen, Tylenol to treat symptoms. Reports that he has had generalized weakness with fatigue and shortness of breath when ambulatory. He is in no respiratory distress. Reports that cough initially was dry and is now coughing up a clear sputum. All systems reviewed and negative except as noted above. Related Data Home Medications Medication Instructions Recorded Confirmed Lantus Solostar U-100 Insulin 36 unit SUBCUT HS 12/17/19 10/30/20 azelastine-fluticasone 1 spray INTRANASAL BID 12/17/19 10/30/20 dextroamphetamine-amphetamine 30 mg PO QAM 12/17/19 10/30/20 [Adderall XR] insulin aspart U-100 [Novolog See Protocol SUBCUT TIDWMEAL 12/17/19 10/30/20 Flexpen U-100 Insulin] lisinopril 40 mg PO HS 12/17/19 10/30/20 insulin syringe-needle U-100 [BD 10/30/20 10/30/20 Insulin Syringe Ultra-Fine] pravastatin 20 mg PO DAILY 10/30/20 10/30/20 Allergies Allergy/AdvReac Type Severity Reaction Status Date / Time No Known Allergies Allergy Verified 10/30/20 16:49 Review of Systems Review of Systems: CONSTITUTIONAL: Reports fever, chills, or sweats. EYES: Denies visual changes, redness, or discharge. ENT: Reports rhinorrhea, congestion. Denies sore throat, or otalgia. CARDIOVASCULAR: Denies chest pain, palpitations, or edema. RESPIRATORY: Reports cough. Denies dyspnea. GASTROINTESTINAL: Denies abdominal pain, nausea, vomiting, or diarrhea. GENITOURINARY: Denies dysuria or hematuria. SKIN: Denies rash or itching. MUSCULOSKELETAL: Denies back pain, joint pain, or myalgia. NEUROLOGIC: Denies headache, numbness, or weakness. PSYCHIATRIC: Denies anxiety or depression. All other systems reviewed are negative, except as documented in HPI. [facility] Past Medical History Medical History (Updated 05/20/21 @ 11:27 by Jaon Tapia NP) Diabetes mellitus Diverticulosis Hepatic steatosis Hypertension Lung nodule PTSD (post-traumatic stress disorder) Surgical History Surgical History (Updated 12/16/19 @ 19:33 by Nohemy Cronin NP) H/O right wrist surgery ORIF right wrist History of carpal tunnel release Bilaterally Family History Family History (Updated 12/17/19 @ 00:22 by Angela Casarez RN) Father Cancer Sibling Diabetes 1.5, managed as type 1 Sibling Diabetes 1.5, managed as type 1 Social History Social History (Updated 12/16/19 @ 19:29 by Nohemy Cronin NP) Social History: The patient is and has 3 children. He has been in the developed PTSD from the . Patient chews tobacco. He occasionally drinks. His is the durable power staff attorney for healthcare. The patient is a full code. Smoking status: Light tobacco smoker Tobacco type: cigarettes Alcohol intake: unknown Substance use: unknown Gender identity (if verbalized by the patient): Male Spiritual care concerns: No Comments At time of signature, agree with nursing past medical, surgical, social and family history. There is no relevant family history pertinent to the presenting complaint. Exam Narrative: GENERAL: This is a well-nourished, well-developed patient, in no apparent distress. HEAD: normocephalic, atraumatic. EYES: PERRL. Sclera clear/white. Vision is grossly intact. EARS: External ears normal, auditory canals clear and without drainage, TMs normal without perforation. Hearing grossly intact. NOSE: External nose normal with clear nasal drainage, erythema to nares. THROAT: Mucous membranes moist, mild er
== END 2021-05-20 11:30 | disposition home or self-care (01) ==
PROVIDERS: Emergency Provider Nurse Practitioner Family; PCP Family Medicine
DX: J06.9 Acute upper respiratory infection, unspecified (principal); Z20.822 Contact with and (suspected) exposure to COVID-19; F17.210 Nicotine dependence, cigarettes, uncomplicated; E11.9 Type 2 diabetes mellitus without complications; I10 Essential (primary) hypertension; K76.0 Fatty (change of) liver, not elsewhere classified
CPT/HCPCS: 87426; 87804; 99213; C9803; G0463

== ENCOUNTER 2022-04-30 10:55 | Emergency (ER) | payer BC, SELFPAY ==
--- NOTE | ~2022-04-30 | XR_ITS ---
EXAMINATION: XR foot RT min 3V DATE: 04/30/2022 11:23 INDICATION: Right foot pain TECHNIQUE: Dorsoplantar, lateral, and 2 oblique views of the right foot were obtained. COMPARISON: None. FINDINGS: Bone alignment is normal. No fracture is identified. There is mild osteoarthritis of the mi dfoot. IMPRESSION: 1. No acute osseous abnormality. Reviewed, dictated and finalized at location A.
[2022-04-30 11:14] VITALS: BP 158/93; PULSE 85; RESP 16; TEMP 36.4; O2SAT 100
[2022-04-30 11:15] VITALS: BP 158/93; PULSE 85; RESP 16; TEMP 36.4; O2SAT 100
--- NOTE | 2022-04-30 11:23 | ED.LOWEXIN ---
HPI - Extremity Injury (Lower) General Chief Complaint: Extremity Injury, Lower Stated Complaint: R FOOT INJURY Source: patient and RN notes reviewed History of Present Illness HPI Narrative: [age] male presents to urgent care with complaints of right dorsal foot pain and swelling. Patient reports some bruising over the dorsal foot where he accidentally dropped a couch on his foot last night. Patient denies any numbness, tingling, or any other symptoms. Some parts of this dictation were generated by voice recognition software and may contain typographical and/or grammatical inaccuracies. Related Data Home Medications Medication Instructions Recorded Confirmed azelastine-fluticasone 137 mcg-50 1 spray intranasal BID 12/17/19 04/30/22 mcg/spray nasal spray dextroamphetamine-amphetamine ER 30 mg PO QAM 12/17/19 04/30/22 30 mg 24hr capsule,extend release (Adderall XR) insulin aspart U-100 100 unit/mL See Protocol subcut TIDWMEAL 12/17/19 04/30/22 (3 mL) subcutaneous pen (Novolog FlexPen U-100 Insulin aspart) insulin glargine 100 unit/mL (3 36 unit subcut HS 12/17/19 04/30/22 mL) subcutaneous pen (Lantus Solostar U-100 Insulin) lisinopril 40 mg tablet 40 mg PO HS 12/17/19 04/30/22 insulin syringe-needle U-100 0.5 10/30/20 04/30/22 mL 31 gauge x 5/16 (BD Insulin Syringe Ultra-Fine) pravastatin 20 mg tablet 20 mg PO DAILY 10/30/20 04/30/22 Allergies Allergy/AdvReac Type Severity Reaction Status Date / Time No Known Allergies Allergy Verified 04/30/22 11:14 Review of Systems Review of Systems: CONSTITUTIONAL: Denies fever, chills, or sweats. EYES: Denies visual changes, redness, or discharge. ENT: Denies otalgia and sore throat CARDIOVASCULAR: Denies chest pain, palpitations, or edema. RESPIRATORY: Denies cough or dyspnea. GASTROINTESTINAL: Denies abdominal pain, nausea, vomiting, or diarrhea. GENITOURINARY: Denies dysuria or hematuria. SKIN: Denies rash or itching. MUSCULOSKELETAL: Right foot pain NEUROLOGIC: Denies headache, numbness, or weakness. Pertinent positives per HPI. [facility] Past Medical History Medical History (Updated 04/30/22 @ 11:40 by Belem Thomas APRN) Diabetes mellitus Diverticulosis Hepatic steatosis Hypertension Lung nodule PTSD (post-traumatic stress disorder) Surgical History Surgical History (Updated 12/16/19 @ 19:33 by Nohemy Cronin NP) H/O right wrist surgery ORIF right wrist History of carpal tunnel release Bilaterally Family History Family History (Updated 12/17/19 @ 00:22 by Angela Casarez RN) Father Cancer Sibling Diabetes 1.5, managed as type 1 Sibling Diabetes 1.5, managed as type 1 Social History Social History (Updated 12/16/19 @ 19:29 by Nohemy Cronin NP) Social History: The patient is and has 3 children. He has been in the developed PTSD from the . Patient chews tobacco. He occasionally drinks. His is the durable power roll tube setter for healthcare. The patient is a full code. Smoking status: Light tobacco smoker Tobacco type: cigarettes Alcohol intake: unknown Substance use: unknown Living arrangements: with family Occupation/Education: occupation Gender identity (if verbalized by the patient): Male Spiritual care concerns: No Comments At the time of my signature, I reviewed and agree with the nursing past medical, surgical, social, and family history. There is no relevant family history pertinent to the patient complaint. Exam Narrative: GENERAL: This is a well-nourished, well-developed patient, in no apparent distress. HEAD: normocephalic, atraumatic. EYES: Sclera clear/white. Vision is grossly intact. EARS: External ears normal, auditory canals clear and without drainage, TMs normal without perforation. Hearing grossly intact. NOSE: External nose normal with no obvious nasal discharge, nares without redness, no rhinorrhea. THROAT: Muc
== END 2022-04-30 11:45 | disposition home or self-care (01) ==
PROVIDERS: Emergency Provider Nurse Practitioner Family; PCP Family Medicine
DX: S90.31XA Contusion of right foot, initial encounter (principal); E11.9 Type 2 diabetes mellitus without complications; I10 Essential (primary) hypertension; F17.210 Nicotine dependence, cigarettes, uncomplicated; Z79.4 Long term (current) use of insulin; W20.8XXA Other cause of strike by thrown, projected or falling object, initial encounter
CPT/HCPCS: 73630; 99213; G0463

== ENCOUNTER 2023-09-25 17:16 | Emergency (ER) | payer BC, SELFPAY ==
--- NOTE | ~2023-09-25 | XR_ITS ---
EXAMINATION: XR elbow LT min 3V DATE: 09/25/2023 17:44 INDICATION: Left elbow pain and swelling TECHNIQUE: Anteroposterior, two oblique and lateral views of the left elbow were obtained. COMPARISON: None. FINDINGS: Alignment is normal. No fracture or joint effusion. Mild osteoarthritis at the proximal radioulnar an d ulnotrochlear articulations of the elbow joint. Mild soft tissue swelling posterior to the left elb ow and proximal forearm. IMPRESSION: 1. Mild osteoarthritis at the left elbow. No joint effusion or acute osseous abnormality. Reviewed, dictated and finalized at location A. IMPRESSION: 1. Mild osteoarthritis at the left elbow. No joint effusion or acute osseous ab normality.
--- NOTE | 2023-09-25 17:18 | ED.UPPEXIN ---
HPI - Extremity Injury (Upper) General Chief Complaint: Extremity Problem,Nontraumatic Stated Complaint: L ELBOW PAIN/L HAND SWELLING Source: patient and RN notes reviewed Mode of arrival: ambulatory Limitations: no limitations History of Present Illness HPI narrative: Patient is a 38-year-old male who presents to the [facility] with complaints of left elbow pain. He states that he has pain to both the medial and lateral aspect at the elbow. He denies recent injury. Reports history of radial head fracture back in 2019. States that he will occasionally have pain to the elbow and swelling since that injury. Patient states that he noticed that the swelling is now in the elbow and radiates down into the left hand. He denies any hand pain or injury at this time. He is neurovascularly intact distally. Sensation is intact. Related Data Home Medications Medication Instructions Recorded Confirmed insulin aspart U-100 100 unit/mL See Protocol subcut TIDWMEAL 12/17/19 04/30/22 (3 mL) subcutaneous pen (Novolog FlexPen U-100 Insulin aspart) insulin glargine 100 unit/mL (3 36 unit subcut HS 12/17/19 04/30/22 mL) subcutaneous pen (Lantus Solostar U-100 Insulin) lisinopril 40 mg tablet 40 mg PO HS 12/17/19 04/30/22 insulin syringe-needle U-100 0.5 10/30/20 04/30/22 mL 31 gauge x 5/16 (BD Insulin Syringe Ultra-Fine) Allergies Allergy/AdvReac Type Severity Reaction Status Date / Time No Known Allergies Allergy Verified 09/25/23 17:32 Review of Systems Review of Systems: CONSTITUTIONAL: Denies fever, chills, or sweats. EYES: Denies visual changes, redness, or discharge. ENT: Denies otalgia and sore throat CARDIOVASCULAR: Denies chest pain, palpitations, or edema. RESPIRATORY: Denies cough or dyspnea. GASTROINTESTINAL: Denies abdominal pain, nausea, vomiting, or diarrhea. GENITOURINARY: Denies dysuria or hematuria. SKIN: Denies rash or itching. MUSCULOSKELETAL: Reports left elbow pain and swelling. NEUROLOGIC: Denies headache, numbness, or weakness. Pertinent positives per HPI. [facility] Past Medical History Medical History Diabetes mellitus Diverticulosis Hepatic steatosis Hypertension Lung nodule PTSD (post-traumatic stress disorder) Surgical History Surgical History H/O right wrist surgery ORIF right wrist History of carpal tunnel release Bilaterally Family History Family History Father Cancer Sibling Diabetes 1.5, managed as type 1 Sibling Diabetes 1.5, managed as type 1 Social History Social History Social History: The patient is and has 3 children. He has been in the developed PTSD from the . Patient chews tobacco. He occasionally drinks. His is the durable power trademark attorney for healthcare. The patient is a full code. Smoking status: Light tobacco smoker Tobacco type: cigarettes Alcohol intake: unknown Substance use: unknown Living arrangements: with family Occupation/Education: occupation Gender identity (if verbalized by the patient): Male Spiritual care concerns: No Comments At the time of my signature, I reviewed and agree with the nursing past medical, surgical, social, and family history. There is no relevant family history pertinent to the patient complaint. Exam Narrative: GENERAL: This is a well-nourished, well-developed patient, in no apparent distress. HEAD: normocephalic, atraumatic. EYES: Sclera clear/white. Vision is grossly intact. EARS: External ears normal. Hearing grossly intact. NOSE: External nose normal with no obvious nasal discharge, nares without redness, no rhinorrhea. THROAT: Mucous membranes moist, posterior pharynx clear. NECK: Neck supple, non-tender without lymphade
[2023-09-25 17:26] VITALS: BP 149/103; PULSE 110; RESP 16; TEMP 36.8; O2SAT 100
== END 2023-09-25 18:20 | disposition short-term general hospital (02) ==
PROVIDERS: Emergency Provider Nurse Practitioner
DX: M25.522 Pain in left elbow (principal); F17.210 Nicotine dependence, cigarettes, uncomplicated; E11.9 Type 2 diabetes mellitus without complications; Z79.4 Long term (current) use of insulin; I10 Essential (primary) hypertension
CPT/HCPCS: 73080; 99213; G0463

== ENCOUNTER 2023-10-25 08:15 | Emergency (ER) | payer BC, SELFPAY ==
--- NOTE | 2023-10-25 08:32 | ED.URI ---
HPI - URI/Sore Throat General Chief Complaint: Upper Respiratory Infection Stated Complaint: Sinus Infection Symptoms Source: patient and RN notes reviewed Mode of arrival: ambulatory Limitations: no limitations History of Present Illness HPI Narrative: 38 y/o male with hx DM1 presented for c/o nasal congestion, sinus pressure and cough for about 6 days. He denies shortness of breath, wheezing, nausea, vomiting, diarrhea or lethargy. Denies sick contacts. Endorses history of sinus surgery and takes antihistamines and nasal sprays daily. Has also added Mucinex and Neti pot to routine since symptom onset. MD elicited complaint: cough Related Data Home Medications Medication Instructions Recorded Confirmed insulin aspart U-100 100 unit/mL See Protocol subcut TIDWMEAL 12/17/19 10/25/23 (3 mL) subcutaneous pen (Novolog FlexPen U-100 Insulin aspart) lisinopril 40 mg tablet 40 mg PO HS 12/17/19 10/25/23 insulin syringe-needle U-100 0.5 10/30/20 10/25/23 mL 31 gauge x 5/16 (BD Insulin Syringe Ultra-Fine) pravastatin 20 mg tablet 20 mg PO DAILY 10/25/23 10/25/23 Allergies Allergy/AdvReac Type Severity Reaction Status Date / Time No Known Allergies Allergy Verified 10/25/23 08:32 Review of Systems Review of Systems: CONSTITUTIONAL: Endorses malaise, chills, sweats, fever EYES: Denies visual changes, redness, or discharge ENT: Reports rhinorrhea, congestion, sinus pain, denies otalgia, sore throat CARDIOVASCULAR: Denies chest pain, palpitations, edema RESPIRATORY: Reports cough, post nasal drainage. Denies dyspnea GASTROINTESTINAL: Denies abdominal pain, nausea, vomiting, diarrhea SKIN: Denies rash or itching MUSCULOSKELETAL: Denies myalgia NEUROLOGIC: Reports headache PMFSH Past Medical History Medical History Diabetes mellitus Diverticulosis Hepatic steatosis Hypertension Lung nodule PTSD (post-traumatic stress disorder) Surgical History Surgical History H/O right wrist surgery ORIF right wrist History of carpal tunnel release Bilaterally Family History Family History Father Cancer Sibling Diabetes 1.5, managed as type 1 Sibling Diabetes 1.5, managed as type 1 Social History Social History Social History: The patient is and has 3 children. He has been in the developed PTSD from the . Patient chews tobacco. He occasionally drinks. His is the durable power hobber for healthcare. The patient is a full code. Smoking status: Light tobacco smoker Tobacco type: cigarettes Alcohol intake: unknown Substance use: unknown Living arrangements: with family Occupation/Education: occupation Gender identity (if verbalized by the patient): Male Spiritual care concerns: No Exam Narrative: GENERAL: mildly Ill-appearing, nontoxic no acute distress. EYES: PERRLA, conjunctivae clear ENT: Mucous membranes moist. TMs pearly quinones with dull light reflex bilaterally; no tragal tenderness. Oropharynx not erythematous without lesions or exudate, no drooling, no hoarseness, no trismus, uvula midline. No tripod positioning, muffled voice, soft palate or pharyngeal wall bulging NECK: Supple. No lymphadenopathy CHEST: Clear to auscultation, breath sounds equal. No wheezing, rhonchi, rales, or stridor. No respiratory distress, speaks in full sentences. HEART: Regular rate and rhythm. No murmur heard. SKIN: Warm, dry, no rash. NEURO: Alert and oriented x3. PSYCH: Normal mood and affect Course Course Emergency Course: Patient is aware of diagnosis, understands and agrees to treatment plan. Anticipatory guidance given. Patient agrees to follow-up as directed and is aware of reasons to seek care at the emergency department. Po
[2023-10-25 08:37] VITALS: BP 133/85; PULSE 87; RESP 16; TEMP 36.1; O2SAT 98
[2023-10-25 09:12] LABS: EDSTREPNEGPOS1 Negative (Negative)
== END 2023-10-25 09:18 | disposition home or self-care (01) ==
PROVIDERS: Emergency Provider Nurse Practitioner Family
DX: J06.9 Acute upper respiratory infection, unspecified (principal); E11.9 Type 2 diabetes mellitus without complications; Z79.4 Long term (current) use of insulin; K76.0 Fatty (change of) liver, not elsewhere classified; I10 Essential (primary) hypertension; F43.10 Post-traumatic stress disorder, unspecified; F17.220 Nicotine dependence, chewing tobacco, uncomplicated; F17.210 Nicotine dependence, cigarettes, uncomplicated
CPT/HCPCS: 87880; 99213; G0463

== ENCOUNTER 2024-10-06 16:02 | Emergency (ER) | payer BC, SELFPAY ==
--- NOTE | ~2024-10-06 | XR_ITS ---
EXAMINATION: XR foot RT min 3V DATE: 10/06/2024 16:20 INDICATION: Right great toe injury and pain TECHNIQUE: Dorsoplantar, two oblique and lateral views of the right foot were obtained. COMPARISON: 04/30/2022 FINDINGS: Alignment is normal. No fracture. Minimal to mild osteoarthritis at the talonavicular, first metatarsophalangeal and a few tarsometatarsal and interphalangeal joints. IMPRESSION: 1. 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 No acute osseous adenopathy. Reviewed, dictated and finalized at location A. IMPRESSION: 1. 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 No acute o sseous adenopathy.
[2024-10-06 16:11] VITALS: BP 153/95; PULSE 109; RESP 16; TEMP 36.4; O2SAT 100
--- NOTE | 2024-10-06 16:25 | ED_ITS ---
HPI - Extremity Injury (Lower) General Chief Complaint: Extremity Injury, Lower Stated Complaint: INJURED R TOES Time Seen by Provider: 10/06/24 16:24 Source: patient and RN notes reviewed Mode of arrival: ambulatory Limitations: no limitations History of Present Illness HPI Narrative: 39-year-old male presents with concern for injury to the right foot. He reports yesterday he dropped a propane tank on his right foot yesterday. He reports pain to the 1st 2nd 3rd digits. The toenail of the 1st digit is discolored. Reports he has used ice and elevation. Patient is diabetic. MD complaint: foot injury Related Data Home Medications ?Medication ?Instructions ?Recorded ?Confirmed ?Last Taken ?Type insulin aspart U-100 100 unit/mL See Protocol subcut T IDWMEAL 12/17/19 10/06/24 Unknown History (3 mL) subcutaneous pen (Novolog FlexPen U-100 Insulin aspart) lisinopril 40 mg tablet 40 mg PO HS 12/17/19 5 Unknown History insulin syringe-needle U-100 0.5 10/30/20 10/25/23 Un known History mL 31 gauge x 5/16 (BD Insulin Syringe Ultra-Fine) pravastatin 20 mg tablet 20 mg PO DAILY 10/25/2303/01 Unknown History clonazepam 0.5 mg tablet mg 10/06/24 Unknown History dextroamphetamine-amphetamine ER PO 10/06/24 Unknown History 30 mg 24hr capsule,extend release glucagon HCl 1 mg solution for mg 10/06/24 Unknown Hi story injection (Glucagon (HCl) Emergency Kit) insulin aspart U-100 100 unit/mL 10/06/24 Unknown Hi story subcutaneous solution (Novolog U-100 Insulin aspart) Allergies Allergy/AdvReac Type Severity Reaction Status Date / Time No Known Allergies Allergy Verified 10/25/23 08:32 Review of Systems Review of Systems: CONSTITUTIONAL: Denies malaise, chills, sweats, or fever. SKIN: Denies rash or itching, open skin, laceration, abrasion, redness, warmth MUSCULOSKELETAL: Reports pain to the 1st 2nd 3rd digit of the right foot NEUROLOGIC: Denies numbness, weakness All systems reviewed & are unremarkable except as noted in HPI and below PMFSH Past Medical History Medical History Diabetes mellitus Diverticulosis Hepatic steatosis Hypertension Lung nodule PTSD (post-traumatic stress disorder) Surgical History Surgical History H/O right wrist surgery ORIF right wrist History of carpal tunnel release Bilaterally Family History Family History Father Cancer Sibling Diabetes 1.5, managed as type 1 Sibling Diabetes 1.5, managed as type 1 Social History Social History Social History: The patient is and has 3 children. He has been in the developed PTSD from the . Patient chews tobacco. He occasionally drinks. His is the durable power managing attorney for healthcare. The patient is a full code. Smoking status: Light tobacco smoker Tobacco type: cigarettes Alcohol intake: unknown Substance use: unknown Living arrangements: with family Occupation/Education: occupation Gender identity (if verbalized by the patient): Male Spiritual care concerns: No Comments At time of signature, agree with nursing past medical, surgical, social and family history. There is no relevant family history pertinent to the presenting complaint Exam Narrative: GENERAL: Well-appearing, well-nourished, and in no acute distress. HEAD: Normocephalic, atraumatic. EYES: PERRLA, conjunctivae clear NECK: Supple. CHEST: Speaks in full sentences. No respiratory distress. HEART: Regular rate and rhythm. Normal and equal peripheral pulses. EXTREMITIES: Right foot in digits 1, 2, 3 have grossly normal strength and sensation, grossly normal range of motion. No edema. Normal sensation with sensitivity to light touch and pain. No point tenderness. No open wounds, no skin tenting, no devitalized tissue or atrophy, no trophic changes, no obvious deformity, alignment normal, nearby joints and structures intact. Distal pulses palpable and equal bilaterally, skin warm, dry, pink. Capillary refill less than 3 seconds. SKIN: Warm, dry, no rash. Subungual hematoma noted to the 1st digit of the right foot NEURO: Alert and oriented x3. PSYCH: Normal mood and affect Course Course Emergency Course: Discussed x-ray findings. Discussed nail trephination, patient is agreeable. Discussed prophylactic antibiotics for the small abrasion on the patient's toe patient said he has never had issue with infections in his feet and does not think it is necessary to prophylactic antibiotic. Patient will monitor for signs and symptoms of infection and seek care if needed. Patient is aware of diagnosis, understands and agrees to treatment plan. Anticipatory guidance given. Patient agrees to follow-up as directed and is aware of reasons to seek care at the emergency department. Portions of this record may have been created with voice recognition software Level of Care: Express Care Visit Vital Signs Vital signs: Vital Signs Temperature 97.5 F L 10/06/24 16:11 Pulse Rate 109 H 10/06/24 16:11 Respiratory Rate 16 10/06/24 16:11 Blood Pressure 153/95 H 10/06/24 16:11 Pulse Oximetry 100 10/06/24 16:11 Temperature 97.5 F L 10/06/24 16:11 Pulse Rate 109 H 10/06/24 16:11 Respiratory Rate 16 10/06/24 16:11 Blood Pressure 153/95 H 10/06/24 16:11 Pulse Oximetry 100 10/06/24 16:11 Reviewed. Procedures Nail Trephination Nail Trephination #1: Nail Trephination Date: 10/06/24 Nail Trephination Time: 16:39 Location (finger): right Location (toes): first digit Sterile prep: betadine Method of drainage: needle Procedure successful: Yes Patient tolerated procedure: well MDM - Extremity Injury (Lower) MDM Narrative Medical decision making narrative: The patient was evaluated by myself in the [facility] care. History is obtained from patient who is an independent historian and physical exam was performed.? Available medical records were reviewed at this time. ? Exam findings show no acute concerns or changes; patient is non-toxic appearing and is in no distress. Patient is appropriate for outpatient treatment and follow-up. ? I have evaluated and discussed social determinants of health with the patient that could potentially impact subsequent diagnosis and treatment plans. ? Patients injury and pain is consistent with musculoskeletal etiology. No signs of neurological or vascular compromise on exam. Compartments and tissues are soft without signs of compartment syndrome. Pain is felt appropriate for further evaluation on an outpatient basis. Imaging Data My impression: Images reviewed, interpreted by radiologist, agree, see report. Radiologist's impression: EXAMINATION: XR foot RT min 3V DATE: 10/06/2024 16:20 INDICATION: Right great toe injury and pain TECHNIQUE: Dorsoplantar, two oblique and lateral views of the right foot were obtained. COMPARISON: 04/30/2022 FINDINGS: Alignment is normal. No fracture. Minimal to mild osteoarthritis at the talonavicular, first metatarsophalangeal and a few tarsometatarsal and interphalangeal joints. IMPRESSION: 1. 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 No acute osseous adenopathy. Critical Care Time Critical Care Time Critical Care Time: No Discharge Plan Discharge Clinical Impression: Subungual hematoma Patient Disposition: Home Condition: Stable Instructions: Subungual Hematoma (ED) Additional Instructions: 1) Please follow-up with your primary care doctor in the next 1-2 days. 2) If you have any worsening of symptoms or any other urgent concerns please go to the ER. 3) Please take medications as prescribed and continue taking your home medications as usual. 4) Please read and follow information included in discharge instructions. Patient Language: [place]guill[place] Prescriptions: No Action (DME) insulin syringe-needle U-100 [BD Insulin Syringe Ultra-Fine] 0.5 mL 31 gauge x 5/16 syringe MISCELLANEOUS clonazepam 0.5 mg tablet insulin aspart U-100 [Novolog U-100 Insulin aspart] 100 unit/mL solution dextroamphetamine-amphetamine 30 mg capsule,extended release 24hr PO glucagon HCl [Glucagon (HCl) Emergency Kit] 1 mg recon soln pravastatin 20 mg tablet 20 mg PO DAILY methylprednisolone [Medrol (Dickson)] 4 mg tablets,dose pack See Rx Instructions .ROUTE .COMPLEX Qty: 21 0RF Rx Instructions: orally per package directions amoxicillin-pot clavulanate 875-125 mg tablet 1 tablet PO Q12H 7 Days Qty: 14 0RF lisinopril 40 mg tablet 40 mg PO HS insulin aspart U-100 [Novolog FlexPen U-100 Insulin] 100 unit/mL (3 mL) insulin pen See Protocol SUBCUT TIDWMEAL Protocol: Insulin Corrective Moderate-Dose Condition: glucose < 70 mg/dl Dose/Route: Follow hypoglycemia orders Condition: glucose 70-200 mg/dl Dose/Route: No additional insulin Condition: glucose 201-250 mg/dl Dose/Route: 3 units sub-Q Condition: glucose 251-300 mg/dl Dose/Route: 4 units sub-Q Condition: glucose 301-350 mg/dl Dose/Route: 5 units sub-Q Condition: glucose 351-400 mg/dl Dose/Route: 6 units sub-Q Condition: glucose > 400 mg/dl Dose/Route: Call MD Protocol Text: *No Correction Dose at Bedtime* Patient Comments: patient has insulin pump Follow-up/Referrals: Bharati,Miriam Mo, VENE[facility] MATCHER [Primary Care Provider, Unknown] Time of Disposition: 16:47
== END 2024-10-06 16:56 | disposition home or self-care (01) ==
PROVIDERS: Emergency Provider Nurse Practitioner
DX: S90.211A Contusion of right great toe with damage to nail, initial encounter (principal); W20.8XXA Other cause of strike by thrown, projected or falling object, initial encounter; F17.210 Nicotine dependence, cigarettes, uncomplicated; E11.9 Type 2 diabetes mellitus without complications; Z79.4 Long term (current) use of insulin; I10 Essential (primary) hypertension; K76.0 Fatty (change of) liver, not elsewhere classified
CPT/HCPCS: 11740; 73630; 99213; G0463